=== PATIENT | male | born 1950 | race Caucasian/White ===

== ENCOUNTER → 2021-09-08 | Outpatient (CLI) | payer OTHER ==
[~2021-09-08] MED LIST: ASPIR 8181 MG PO; ASPIR-TRIN325 MG PO; DAILY VITAMIN1 EAC6 PO; FLOMAX0.4 MG PO; HYDROCODONE-AP1 EAC6 PO; IBUPROFEN 400400 M2 PO; LIPITOR 20 MG T20 M1 PO; LISINOPRIL20 MG PO; VENTOLIN HFA 1818 GM INH; VIAGRA50 MG PO
== END ==
LOC: M.CT 09:10
PROVIDERS: ATTEND Family Medicine
DX: J43.9 Emphysema, unspecified (principal); Z12.2 Encounter for screening for malignant neoplasm of respiratory organs; Z87.891 Personal history of nicotine dependence; I25.10 Atherosclerotic heart disease of native coronary artery without angina pectoris